=== PATIENT | male | born 1985 | race Caucasian/White ===

== ENCOUNTER 2022-03-21 21:53 | Emergency (ER) | payer MEDICAID ==
[~2022-03-21] VITALS: Ht 175.3 cm; Wt 113.6 kg
[~2022-03-21 21:53] MED LIST: CETI-194 PO
[2022-03-21] MEDS ORDERED: normal saline 1000ML IV soln IVB ONE (22:40)
--- NOTE | 2022-03-21 23:43 | NUR ---
Girlfriend at bedside.
[2022-03-21 23:45] LABS: BASOPHILS % (AUTO) 0.2 % (0-1); EOSINOPHILS # (AUTO) 0.1 X10'3 (0-0.9); EOSINOPHILS % (AUTO) 0.3 % (0-6); HEMATOCRIT 43.9 % (42.0-52.0); HEMOGLOBIN 14.2 g/dl (14.0-17.9); LYMPHOCYTES # (AUTO) 1.1 X10'3 (1.1-4.8); LYMPHOCYTES % (AUTO) 5.8 % (21-51); MEAN CORPUSCULAR HEMOGLOBIN 28.1 PG (27.0-31.0); MEAN CORPUSCULAR HGB CONC 32.4 g/dL (33.0-36.5); MEAN CORPUSCULAR VOLUME 86.6 FL (78-98); MEAN PLATELET VOLUME 8.3 FL (7.4-10.4); MONOCYTES # (AUTO) 1.8 X10'3 (0-0.9); MONOCYTES % (AUTO) 9.5 % (2-12); NEUTROPHILS % (AUTO) 84.2 % (42-75); PLATELET COUNT 273 X10'3 (140-440); RED BLOOD COUNT 5.07 X10'6 (4.70-6.10); RED CELL DISTRIBUTION WIDTH 15.2 % (11.5-14.5)
[2022-03-22 00:09] LABS: ALANINE AMINOTRANSFERASE 183 U/L (12-78); ALBUMIN 3.5 G/DL (3.4-5.0); ALKALINE PHOSPHATASE 76 IU/L (46-116); ANION GAP 13 (8-16); ASPARTATE AMINO TRANSFERASE 191 U/L (10-37); BILIRUBIN,TOTAL 0.3 MG/DL (0.1-1.0); BLOOD UREA NITROGEN 13 MG/DL (7-18); CALCIUM 9.1 MG/DL (8.5-10.1); CHLORIDE 104 MMOL/L (99-107); CREATININE 1.87 MG/DL (0.60-1.10); GLUCOSE 102 MG/DL (70-104); POTASSIUM 3.7 MMOL/L (3.5-5.1); SODIUM 142 MMOL/L (135-145); TOTAL CARBON DIOXIDE 25.3 MMOL/L (24-32); TOTAL PROTEIN 7.1 G/DL (6.4-8.2); eGFR 41 ML/MIN
[2022-03-22] MEDS ORDERED: normal saline 1000ML IV soln IVB ONE ×2 (00:15→00:35)
[2022-03-22 00:35] LABS: ETHANOL < 0.010 GM/DL (0.0-0.010)
[2022-03-22] MEDS ORDERED: LIDOcaine 2% 5ml jelly TOP ONE (00:35)
[2022-03-22] MEDS ORDERED: propofol 10mg/ml 20ml vial IV ONE ×3 (00:35→01:15)
[2022-03-22] MEDS ORDERED: LIDOcaine/PRILOcaine 5gm cream TP ONE (00:55)
[2022-03-22] MEDS ORDERED: HYDR-3972 PO (02:52)
[2022-03-22] MEDS ORDERED: HYDROcodone/acetaminophen 10/325mg tab PO ONE (02:55)
[2022-03-22] MEDS ORDERED: ketorolac trometh. 30mg/ml inj. IV ONE (03:00)
[2022-03-22 03:18] VITALS: BP 146/88
== END 2022-03-22 03:24 | disposition home or self-care (01) ==
LOC: ER 21:54
DX: S52.091A Other fracture of upper end of right ulna, initial encounter for closed fracture (principal); S80.212A Abrasion, left knee, initial encounter; S80.211A Abrasion, right knee, initial encounter; Z88.5 Allergy status to narcotic agent; Z79.899 Other long term (current) drug therapy; F31.9 Bipolar disorder, unspecified; W19.XXXA Unspecified fall, initial encounter; Y93.89 Activity, other specified; Y99.8 Other external cause status; Y92.89 Other specified places as the place of occurrence of the external cause
CPT/HCPCS: 24675; 36415; 71045; 73080; 80053; 80320; 85025; 94799; 96361; 96374; 99152; 99153; 99285; A6258; J1885; J7030; A4565; A4615; A4620; A6446; A6449

== ENCOUNTER 2025-09-25 18:21 | Emergency (ER) | payer MEDICAID ==
[~2025-09-25] VITALS: Ht 175.3 cm; Wt 113.0 kg
[2025-09-25 19:02] VITALS: BP 145/102; PULSE 97; RESP 16; TEMP 98.4; O2SAT 100
--- NOTE | 2025-09-25 19:36 | RADIOLOGY REPORT ---
EXAM: DI FOOT, COMPLETE (3VW MIN) INDICATION: FOOT PAIN RIGHT TECHNIQUE:: 3 views of the right foot COMPARISON: ELBOW, COMPLETE (3VW MIN) on DOS: 03/22/22 FINDINGS/IMPRESSION: Fracture with intra-articular extension involving of the mid to proximal aspect of the 1st distal phalanx. Small plantar calcaneal spur. Trace Achilles insertional enthesophyte. Dorsal for versus os tissue swelling.
--- NOTE | 2025-09-25 20:05 | Physician Documentation ---
History of Present Illness ~ Chief Complaint: Medical Clearance Stated Complaint: MED CLEARANCE Time Seen by MD: 19:07 Primary Medical Doctor: None HPI This is a 40-year-old male who presents requesting medical clearance to enter a rehab program for opioid abuse, patient reports that he has not used any opioids in approximately five days in his already gone through opioid withdrawal while incarcerated. Patient reports that he stubbed his right great toe several days ago and was concerned about the toe as well. Patient reports no other acute symptoms or concerns. Tetanus within 5 years?: No Medication Reconciliation Allergies: Coded Allergies: codeine (Verified Allergy, Unknown, rash, 09/25/25) Scheduled Cetirizine HCl (Aller-Quirino), 1 TAB PO DAILY, (Reported) Ibuprofen (Ibuprofen), 1 TAB PO Q8H Past Medical History Past Medical History: Anxiety, Depression Past Surgical History: noncontributory, tonsillectomy Alcohol Use: None Drug Use: other Lives In: Home Occupation: unemployed Review of Systems ROS As stated above in the HPI, otherwise all systems are reviewed and negative. Physical Exam Vital Signs: Temperature: 98.4, Heart Rate: 97, Respiratory Rate: 16, BP: 145/102, Pulse Oximetry: 100, Weight: 113.000 Oxygen Flow Rate: 0 Physical Exam VITALS: Reviewed and as above. GENERAL: Alert, nontoxic appearing, no apparent distress. HEENT: PERRLA, EOMI RESPIRATORY: No increased work of breathing, no respiratory distress, speaking in full clear sentences, clear lung sounds all marr CHEST: Nontender to palpation CV: Regular rate and rhythm no murmur BACK: Nontender to palpation, no CVA tenderness GI: Soft, nontender, no rebound, no guarding, MUSCULOSKELETAL: Tenderness and swelling to distal tip of right great toe SKIN: Well healing appearing subcentimeter shallow laceration to medial dorsal aspect of right great toe NEURO: Sensation intact to all toes of right foot PSYCH: Normal mood and affect, no statements of HI or SI Progress Results/Orders Results/Orders Orders - JASIEL YANEZ Foot, Complete (3vw Min) (09/25/25 19:19) Completed Orders - JASIEL YANEZ Foot, Complete (3vw Min) (09/25/25 19:19) Ibuprofen Tablet (Motrin Tablet) (09/25/25 20:00) Medications Received in ER Medications (Trade) Dose Ordered Sig/Stevie Route PRN Reason Start Time Stop Time Status Last Admin Dose Admin (Motrin tablet) 800 mg ONCE ONCE PO 09/25/25 20:00 09/25/25 20:01 DC 09/25/25 20:19 800 MG Vital Signs 09/25/25 19:02 Temp 98.4 Pulse 97 Resp 16 B/P (MAP) 145/102 Pulse Ox 100 O2 Flow Rate 0 EKG/XRAY/CT/US/VASC/MRI Bone/Soft Tissue X-Ray (Ext.) : Additional Comment Exam: FOOT, COMPLETE (3VW MIN) EXAM: DI FOOT, COMPLETE (3VW MIN) INDICATION: FOOT PAIN RIGHT TECHNIQUE:: 3 views of the right foot COMPARISON: ELBOW, COMPLETE (3VW MIN) on DOS: 03/22/22 FINDINGS/IMPRESSION: Fracture with intra-articular extension involving of the mid to proximal aspect of the 1st distal phalanx. Small plantar calcaneal spur. Trace Achilles insertional enthesophyte. Dorsal for versus os tissue swelling. Electronically Signed by:KY STYLES MD Date & Time: 09/25/251933 Dictated by: KY STYLES MD Dictation date and time: 09/25/251933 I have reviewed and agree with the radiology report. I have reviewed and interpreted the imaging as: Fracture of the distal phalanx of the 1st digit with intra-articular extension Medical Decision Making Additional information obtaine: N/A Findings This is an otherwise well-appearing 40-year-old male presents requesting medical clearance to enter a rehab program for opioid abuse, patient reported going through opioid withdrawal while incarcerated and reports no opioid use since that time and currently not experiencing any symptoms of opioid withdrawal, additionally patient reported no other substance abuse making alcohol withdrawal and further opioid withdrawal unlikely. Imaging of right great toe did demonstrate evidence of a fracture of the distal tip of the digit with extension to the intra-articular space which will require follow up with orthopedist, patient has been provided contact information for on-call orthopedist and provided follow up instructions. Patient had benign physical exam and vital signs are stable in his appropriate for outpatient follow up. Patient provided careful return to care precautions. Patient is medically cleared to enter his rehab program. Differential Dx:Considerations: Include: Intoxication-Alcohol, Intoxication- Other drug, Substance abuse disorder, Acute delirium, Cervical spine injury, Skull fracture, Fracture(s), Abrasion, Contusion, Foreign body, Hematoma, Laceration, Alcohol withdrawl syndrom, Encephalopathy, Other (Cellulitis, abscess, opiate withdrawal) Departure Time of Disposition: 20:06 Disposition: 01 HOME / SELF CARE / HOMELESS Impression: Primary Impression: Fracture of distal phalanx of right great toe Qualified Codes: S92.424A - Nondisplaced fracture of distal phalanx of right great toe, initial encounter for closed fracture Condition: Improved Discharge Instructions: Toe Fracture, [id number] Additional Instructions: Please wear the stiff-soled shoe for comfort, follow up with the orthopedist at the number provided or with your choice of orthopedist. Please use the prescribed ibuprofen as needed for pain, alternatively you may utilize up to 800 mg of ibuprofen 3 times a day. For breakthrough pain you may add Tylenol [id number] as directed by [id number] packaging or up to a 1000 mg of Tylenol 3 times a day. Please follow up with your primary care provider in the next few days. Please return to the emergency department for any new or worsening concerning symptoms. You are medically cleared to enter your rehabilitation/sober living program Referrals: NO PRIMARY CARE PROVIDER (PCP) Prescriptions Ibuprofen (Ibuprofen) 800 Mg Tablet 1 TAB PO Q8H for pain for 10 Days, #30 TAB 0 Refills Prov: JASIEL YANEZ 09/25/25 Education Educated: Patient Educated regarding: diagnosis, treatment, prognosis, need for follow up Signature Scribe Signature: No scribe Attestation: The note accurately reflects work and decisions made by me.BERNICE Carrizales 09/25/25 20:08 JASIEL YANEZ Sep 25, 2025 20:05
[2025-09-25] MEDS ORDERED: IBUP-1986 PO (20:08)
[2025-09-25] MEDS: ibuprofen tablet 400 MG TABLET PO ONE (20:19)
== END 2025-09-25 20:24 | disposition home or self-care (01) ==
LOC: ER 18:21
DX: S92.424A Nondisplaced fracture of distal phalanx of right great toe, initial encounter for closed fracture (principal); F11.10 Opioid abuse, uncomplicated; F32.A Depression, unspecified; F41.9 Anxiety disorder, unspecified; Z88.5 Allergy status to narcotic agent; Z90.89 Acquired absence of other organs; Z79.899 Other long term (current) drug therapy; Z56.0 Unemployment, unspecified; X58.XXXA Exposure to other specified factors, initial encounter; Y93.89 Activity, other specified; Y92.89 Other specified places as the place of occurrence of the external cause; Y99.8 Other external cause status
CPT/HCPCS: 73630; 99283; L3260